=== PATIENT | male | born 1960 | race African-American/Black ===

== ENCOUNTER 2021-10-12 10:20 | Emergency (ER) | payer MEDICAID ==
[~2021-10-12] VITALS: Ht 167.6 cm; Wt 67.9 kg
--- NOTE | 2021-10-12 11:38 | PHYS DOC ---
Past Medical History Past Medical History: No Pertinent History Past Surgical History: No Surgical History Smoking Status: Never Smoker Alcohol Use: None Drug Use: None General Adult EDM: Chief Complaint: NAUSEA/VOMITING/DIARRHEA HPI: HPI: Patient is a 60-year-old male that presents today with body aches and fever over the last 3 days. Patient does speak Swahili and does have his own public affairs officer at the bedside. Per the public affairs officer patient has had cough body aches and fever over the last 3 days. Per the public affairs officer patient does not have his Covid vaccines. Per the public affairs officer patient has not had any direct contact with anybody known with COVID-19. Patient does have pain in his chest with coughing, he does denies shortness of air. Currently oxygen saturations are 100%. Review of Systems: Review of Systems: Constitutional: Denies fever or chills. [] Eyes: Denies change in visual acuity. [] HENT: Denies nasal congestion or sore throat. [] Respiratory: cough, DENIES shortness of breath. [] Cardiovascular: Denies chest pain or edema. [] GI: Denies abdominal pain, nausea, vomiting, bloody stools or diarrhea. [] : Denies dysuria. [] Musculoskeletal: Body aches Integument: Denies rash. [] Neurologic: Denies headache, focal weakness or sensory changes. [] Endocrine: Denies polyuria or polydipsia. [] Lymphatic: Denies swollen glands. [] Psychiatric: Denies depression or anxiety. [] Heart Score: C/O Chest Pain: N/A Risk Factors: Risk Factors: DM, Current or recent (<one month) smoker, HTN, HLP, family history of CAD, obesity. Risk Scores: Score 0 - 3: 2.5% MACE over next 6 weeks - Discharge Home Score 4 - 6: 20.3% MACE over next 6 weeks - Admit for Clinical Observation Score 7 - 10: 72.7% MACE over next 6 weeks - Early Invasive Strategies Physical Exam: PE: Constitutional: Well developed, well nourished, no acute distress, non-toxic appearance. [] HENT: Normocephalic, atraumatic, bilateral external ears normal, oropharynx moist, no oral exudates, nose normal. [] Eyes: PERRLA, EOMI, conjunctiva normal, no discharge. [] Neck: Normal range of motion, no tenderness, supple, no stridor. [] Cardiovascular:Heart rate regular rhythm, no murmur [] Lungs & Thorax: Bilateral breath sounds clear to auscultation [] Abdomen: Bowel sounds normal, soft, no tenderness, no masses, no pulsatile masses. [] Skin: Warm, dry, no erythema, no rash. [] Back: No tenderness, no CVA tenderness. [] Extremities: No tenderness, no cyanosis, no clubbing, ROM intact, no edema. [] Neurologic: Alert and oriented X 3, normal motor function, normal sensory functi on, no focal deficits noted. [] Psychologic: Affect normal, judgement normal, mood normal. [] Current Patient Data: Labs: Laboratory Tests Test 10/12/21 11:50 White Blood Count 4.9 x10^3/uL Red Blood Count 4.93 x10^6/uL Hemoglobin 14.2 g/dL Hematocrit 42.4 % Mean Corpuscular Volume 86 fL Mean Corpuscular Hemoglobin 29 pg Mean Corpuscular Hemoglobin Concent 34 g/dL Red Cell Distribution Width 13.0 % Platelet Count 152 x10^3/uL Neutrophils (%) (Auto) 76 % Lymphocytes (%) (Auto) 12 % Monocytes (%) (Auto) 11 % Eosinophils (%) (Auto) 0 % Basophils (%) (Auto) 0 % Neutrophils # (Auto) 3.7 x10^3/uL Lymphocytes # (Auto) 0.6 x10^3/uL Monocytes # (Auto) 0.6 x10^3/uL Eosinophils # (Auto) 0.0 x10^3/uL Basophils # (Auto) 0.0 x10^3/uL Sodium Level 144 mmol/L Potassium Level 4.1 mmol/L Chloride Level 106 mmol/L Carbon Dioxide Level 26 mmol/L Anion Gap 12 Blood Urea Nitrogen 11 mg/dL Creatinine 0.9 mg/dL Estimated GFR (Cockcroft-Gault) 104.5 BUN/Creatinine Ratio 12 Glucose Level 79 mg/dL Calcium Level 8.1 mg/dL Total Bilirubin 0.4 mg/dL Aspartate Amino Transf (AST/SGOT) 32 U/L Alanine Aminotransferase (ALT/SGPT) 31 U/L Alkaline Phosphatase 72 U/L Troponin I High Sensitivity 5 ng/L Total Protein 7.2 g/dL Albumin 3.5 g/dL Albumin/Globulin Ratio 0.9 Influenza Type A Antigen Negative Influenza Type B Antigen Negative SARS-CoV-2 Antigen (Rapid) Positive Current Medications Medications (Trade) Dose Ordered Sig/Sami Route PRN Reason Start Time Stop Time Status Last Admin Dose Admin Sodium Chloride 1,000 ml @ 999 mls/hr 1X ONCE IV 10/12/21 11:45 10/12/21 12:45 DC 10/12/21 12:17 Vital Signs: Vital Signs Date Time Temp Pulse Resp B/P (MAP) Pulse Ox O2 Delivery O2 Flow Rate FiO2 10/12/21 13:49 75 19 131/81 (98) 100 Room Air 10/12/21 13:19 84 21 119/72 (88) 96 Room Air 10/12/21 12:49 81 15 123/69 (87) 100 Room Air 10/12/21 12:19 79 18 116/79 (91) 97 Room Air 10/12/21 11:49 86 23 111/64 (80) 99 Room Air 10/12/21 11:30 100.8 100.8 10/12/21 11:14 97.8 90 17 145/78 (100) 100 Room Air 97.8 Vital Signs Date Time Temp Pulse Resp B/P (MAP) Pulse Ox O2 Delivery O2 Flow Rate FiO2 10/12/21 11:30 100.8 100.8 10/12/21 11:14 97.8 90 17 145/78 (100) 100 Room Air 97.8 EKG: EKG: EKG done at [address] Lockhart at 1149 shows sinus rhythm at a rate of 91 no STEMI did have some T wave inversion in aVL, MT interval is 138 ms with a QT interval of 422 ms [] Radiology/Procedures: Radiology/Procedures: REASON: COUGH (PNR [id number]) PROCEDURE: CHEST AP ONLY XR CHEST 1V History: Cough. Comparison: None. Technique: AP radiograph of the chest. Findings: The lungs are adequately and symmetrically inflated. No airspace consolidation, pleural effusion or pneumothorax. The cardiomediastinal silhouette and pulmonary vasculature are within normal limits. No acute osseous abnormality. Soft tissues are unremarkable. Impression: 1. No acute cardiopulmonary process. Electronically signed by: Luis Armando Stephens MD (10/12/2021 12:18 PM) [facility][] Course & Med Decision Making: Course & Med Decision Making Pertinent Labs and Imaging studies reviewed. (See chart for details) Patient informed of his Covid results. Patient notified that his chest x-ray and all other labs were within normal limits. Patient is warm he will need to quarantine for 14 days following his first day of his symptoms. Also family at the bedside that is interpreting for us I recommended that they also quarantine and get tested for COVID-19 due to the close proximity to the patient. Patient and family member at the bedside verbalized understanding of the need for quarantine and understood the discharge instructions of Tylenol and/or ibuprofen at home, also increasing hydration. Patient and family are okay with the discharge home and verbalized understanding. Dragon Disclaimer: [place] Disclaimer: This electronic medical record was generated, in whole or in part, using a voice recognition dictation system. Departure Departure Impression: Primary Impression: COVID-19 Disposition: 01 HOME / SELF CARE / HOMELESS Condition: STABLE Additional Instructions: If you continue to have symptoms past the 14 days follow-up with one of the primary care physicians listed in the brochure that is given to you. Tylenol and/or ibuprofen as needed for pain or fever. You have been tested for or diagnosed with COVID-19. It is an infection caused b y a new type of coronavirus. COVID-19 will cause cold-like or mild flu symptoms in most. It can cause more severe symptoms like problems breathing in some. There is no treatment for COVID-19. The body will clear the infection over time. Self-care will help to ease discomfort. Steps to Take: Self-Care Rest as needed. Healthy habits may help you feel better. Steps include: Choose healthy foods including fruits and vegetables. Drink water throughout the day. Get plenty of sleep each night. If you smoke, try to quit. It may ease breathing. Avoid alcohol. Keep Others Healthy The virus can spread to others. Droplets are released every time you sneeze or cough. The droplets can get into the mouth, nose, or eyes of people near you and lead to infection. To lower the chances of spreading COVID-19 to others: Stay at home until your doctor has said it is safe to leave. If you tested po sitive this will mean staying isolated until both of the following are true: At least 14 days have passed since the start of illness. You are free of fever for at least 72 hours without the use of medicine. During this time: - Avoid public areas, events, or transportation. Do not return to work or school until your doctor has said it is safe to do so. - Call ahead if you need to go to a medical center. Let them know you may have COVID-19. It will help them guide you where to go. They may also ask you to wear a facemask when you come to the office. - If you call for emergency medical services, let them know you may have COVID- 19. While at home: - Try to avoid close contact with others. Stay about 6 feet away. - If possible, spend most of your time in a separate room from others. - Use a face mask if you will be in close contact with others such as sharing a room or vehicle. - Have someone wipe down common surfaces in the home. Use household tennis ball coverer hand every day on areas like doorknobs, counters, or sinks. - Cough or sneeze into a tissue. Throw the tissue away right after use. If a tissue is not available, cough or sneeze into your elbow. - Wash your hands often. Wash them after sneezing or coughing. Use soap and water and wash for at least 20 seconds. Alcohol based hand school cleaner can be used if soap and water is not available. - Do not prepare food for others. Avoid sharing personal items like forks, spoons, or toothbrushes. - Avoid close contact with pets while you are sick. There is no evidence of the virus passing to pets. This is a safety step until more is known about this virus. Isolation can be frustrating. Social interaction can help. Keep in touch with friends and family through phone and tech options. You can still interact with others in your home, just keep a safe distance of about 6 feet. Follow-up: Your doctors office will check in with you to see if there are any changes in your health. You may be asked to keep track of symptoms to share with them. They will also let you know when you are clear to be in public again. Problems to Look Out For: Contact your doctor if your recovery is not going as you expect. Get emergency care if you have problems such as: - Trouble breathing - Nonstop chest pain or pressure - Changes in awareness, confusion, or problems waking - Lips or face have bluish color - Worsening of symptoms If you think you have an emergency, call for emergency medical services right away. As taken from [facility] NAYLA SAENZ APRN Oct 12, 2021 11:37
[2021-10-12] MEDS ORDERED: IV NORMAL SALINE 1000ML BAG 1,000 ML IV ONE (11:45)
[2021-10-12 12:01] LABS: BASO % 0 % (0-3); EOS % 0 % (0-3); HEMATOCRIT 42.4 % (39.0-53.0); HEMOGLOBIN 14.2 g/dL (13.0-17.5); LYMPH # 0.6 x10^3/uL (1.0-4.8); LYMPH % 12 % (24-48); MEAN CORPUSCULAR HEMOGLOBIN 29 pg (25-35); MEAN CORPUSCULAR HGB CONC 34 g/dL (31-37); MEAN CORPUSCULAR VOLUME 86 fL (79-100); MONO # 0.6 x10^3/uL (0.0-1.1); MONO % 11 % (0-9); NEUT # 3.7 x10^3/uL (1.8-7.7); NEUT % 76 % (31-73); PLATELET COUNT 152 x10^3/uL (140-400); RED BLOOD COUNT 4.93 x10^6/uL (4.30-5.70); WHITE BLOOD COUNT 4.9 x10^3/uL (4.0-11.0)
[2021-10-12 12:13] LABS: CALCIUM 8.1 mg/dL (8.5-10.1); CREATININE 0.9 mg/dL (0.7-1.3); GFR 104.5; POTASSIUM 4.1 mmol/L (3.5-5.1)
[2021-10-12 12:18] LABS: ALBUMIN 3.5 g/dL (3.4-5.0); ALBUMIN/GLOBULIN RATIO 0.9 (1.0-1.7); TOTAL BILIRUBIN 0.4 mg/dL (0.2-1.0); TOTAL PROTEIN 7.2 g/dL (6.4-8.2)
--- NOTE | 2021-10-12 12:21 | RAD ---
XR CHEST 1V History: Cough. Comparison: None. Technique: AP radiograph of the chest. Findings: The lungs are adequately and symmetrically inflated. No airspace consolidation, pleural effusion or p neumothorax. The cardiomediastinal silhouette and pulmonary vasculature are within normal limits. No acute osseous abnormality. Soft tissues are unremarkable. Impression: 1. No acute cardiopulmonary process. Electronically signed by: Luis Armando Stephens MD (10/12/2021 12:18 PM) [facility]
[2021-10-12 12:30] LABS: INFLUENZA A PATIENT NEGATIVE (NEGATIVE); INFLUENZA B PATIENT NEGATIVE (NEGATIVE)
[2021-10-12 13:49] VITALS: BP 131/81
--- NOTE | 2021-10-12 18:18 | EKG ---
[facility] [address] [place] [address] Test Date: 2021-10-12 Test Time: 11:32:10 Pat Name: TAVO HOWE Department: Room: Gender: M Service Center Manager: : [id number] Requested By: NAYLA SAENZ Order Number: [id number] Reading MD: Byron Sands MD Measurements Intervals [place] Rate: 91 P: 52 RI: 138 QRS: -12 QRSD: 74 T: 66 QT: 342 QTc: 422 Interpretive Statements SINUS RHYTHM Electronically Signed On 10-13-2021 9:24:46 PROJECT ARCHITECT by Byron Sands MD
== END 2021-10-12 14:32 | disposition home or self-care (01) ==
LOC: ER 10:20
DX: U07.1 COVID-19 (principal)
CPT/HCPCS: 36415; 71045; 80053; 84484; 85025; 87426; 87804; 93005; 96360; 99285; J7030